=== PATIENT | male | born 1985 ===

== ENCOUNTER 2024-05-23 06:05 | Day surgery (SDC) | payer OTHER ==
[2024-05-16 11:41] VITALS: BP 115/79
[~2024-05-23] VITALS: Ht 175.3 cm; Wt 72.6 kg
[2024-05-23] MEDS ORDERED: BUPIVACAINE HCL/MPF 0.5% 30ML VIAL ONE (08:51)
[2024-05-23] MEDS ORDERED: DIBUCAINE 30 GM TUBE ONE (08:51)
[2024-05-23] MEDS ORDERED: LIDOCAINE HCL 1%/EPINEPHRINE 20ML VIAL IJ ONE (08:51)
[2024-05-23] MEDS ORDERED: POVIDONE-IODINE 118 ML BOTT TOP ONE (08:51)
[2024-05-23] MEDS ORDERED: CEFTRIAXONE SODIUM 2,000 MG VIAL ONE (08:52)
[2024-05-23] MEDS ORDERED: HEMOSTATIC MATRIX 1 KIT KIT TOP ONE (08:52)
[2024-05-23] MEDS ORDERED: METRONIDAZOLE/SODIUM CHLORIDE 500 MG/100 ML PIGGYBACK IV ONE (08:52)
== END 2024-05-23 17:45 | disposition home or self-care (01) ==
LOC: CIR.AMB 06:05
PROVIDERS: ATTEND Colon & Rectal Surgery
DX: K64.2 Third degree hemorrhoids (principal); K64.4 Residual hemorrhoidal skin tags; K60.0 Acute anal fissure